=== PATIENT | female | born 1955 | race Caucasian/White ===

== ENCOUNTER 2017-04-02 17:13 | Inpatient (IN) | payer BC, OTHER ==
[2017-04-02] VITALS (10 sets, daily range): BP systolic 127–175; BP diastolic 68–84; PULSE 75–97; RESP 14–18; O2SAT 96–98
[~2017-04-02] VITALS: Ht 167.6 cm; Wt 128.0 kg
[~2017-04-02 17:13] MED LIST: LEXA20TA PO; LORA-475 PO; TELM1TAB56 PO
[2017-04-02] MEDS ORDERED: SODIUM CHLOR 0.9% 1000 ML INJ 1,000 ML IV ONE (17:23)
--- NOTE | 2017-04-02 17:30 | PD ---
HPI Chief Complaint: Stroke Alert Time Seen by Provider: 17:23 Travel History International Travel<30 days: No Contact w/Intl Traveler<30days: No Traveled to known affect area: No History of Present Illness HPI This 62-year-old female says she was driving when she started feeling very strange. She went home and her noted that one side of her face was not moving very well and she was having trouble speaking. She did not have any trouble walking or using her arms. She has a history of hypertension. She is not having headache. The symptoms started at 4:00 while she was driving. She was able to continue driving home. She has a history of hypertension. There is no history of stroke PFSH Past Medical History Cancer: No Diabetes: No Hepatitis: No Hiatal Hernia: No Thyroid Disease: No Past Surgical History Oral Surgery: Yes (TONSILLECTOMY, WISDOM TEETH EXTRACTIONS) Pacemaker: No Social History Tobacco Use: No Allergies-Medications (Allergen,Severity, Reaction): Coded Allergies: Sulfa (Verified Allergy, Severe, OVERALL BODY ACHES, 04/02/17) Reported Meds & Prescriptions Reported Meds & Active Scripts Active Reported Micardis (Telmisartan) 80 Mg Tab 80 Mg PO HS Ativan (Lorazepam) 2 Mg Tab 2 Mg PO BID PRN Review of Systems General / Constitutional: No: Fever, Chills Eyes: No: Diploplia, Blurred Vision HENT: No: Headaches, Vertigo, Lightheadedness Cardiovascular: No: Chest Pain or Discomfort, Palpitations Respiratory: No: Cough, Shortness of Breath Gastrointestinal: No: Vomiting, Diarrhea Genitourinary: No: Urgency Musculoskeletal: No: Myalgias Skin: No Rash Neurologic: Positive: Weakness, Focal Abnormalities, Slurred Speech, No: Syncope Psychiatric: No: Anxiety, Depression Hematologic/Lymphatic: No: Easy Bruising Physical Exam Narrative GENERAL: Well-developed female. She is dysarthric and her speech is slurred. Content of speech is normal SKIN: Focused skin assessment warm/dry. HEAD: Atraumatic. Normocephalic. EYES: Pupils equal and round. No scleral icterus. No injection or drainage. There is facial asymmetry. The left side of the face appears weak and she is unable to close her left eye tight. ENT: No nasal bleeding or discharge. Mucous membranes pink and moist. NECK: Trachea midline. No JVD. CARDIOVASCULAR: Regular rate and rhythm. No murmur appreciated. RESPIRATORY: No accessory muscle use. Clear to auscultation. Breath sounds equal bilaterally. GASTROINTESTINAL: Abdomen soft, non-tender, nondistended. Hepatic and splenic margins not palpable. MUSCULOSKELETAL: No obvious deformities. No clubbing. No cyanosis. No edema. NEUROLOGICAL: Awake and alert. No obvious cranial nerve deficits. There is left facial weakness. There is no sensory deficit. 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 There is no drift of the arms. Leg strength appears symmetric. There is facial asymmetry PSYCHIATRIC: Appropriate mood and affect; insight and judgment normal. Data Data Last Documented VS Vital Signs Date Time Temp Pulse Resp B/P Pulse Ox O2 Delivery O2 Flow Rate FiO2 04/02/17 20:38 85 16 143/71 97 Room Air 04/02/17 17:25 21 Orders Cath For Specimen (04/02/17 17:23) Neuro Checks Q2HX12,Q4H (04/02/17 17:23) Nursing Bedside Swallow Assess .ONCE (04/02/17 17:23) Activity Bed Rest (04/02/17 17:23) Diet Npo (04/02/17 Dinner) Prothrombin Time / Inr (Pt) (04/02/17 17:) Act Partial Throm Time (Ptt) (04/02/17 17:23) Complete Blood Count With Diff (04/02/17 17:) Basic Metabolic Panel (Bmp) (04/02/17 17:23) Fibrinogen (04/02/17 17:) Creatine Kinase (Cpk) (04/02/17 17:) Troponin I (04/02/17 17:23) Ua Includes Microscopic (04/02/17 17:23) Drug Screen, Random Urine (04/02/17 17:) Type And Screen (04/02/17 17:23) Ct Brain W/O Iv Contrast(Rout) (04/02/17 ) Electrocardiogram (04/02/17 ) Beta Hcg (Quant/Titer) (04/02/17 17:23) Consult Neurology (04/02/17 17:23) Sodium Chlor 0.9% 1000 Ml Inj (Ns 1000 M (04/02/17 17:23) Blood Glucose (04/02/17 17:23) Ecg Monitoring (04/02/17 17:23) Iv Access Insert/Monitor (04/02/17 17:23) NPO (04/02/17 17:23) Oximetry (04/02/17 17:23) Oxygen Administration (04/02/17 17:23) Resp Oxygen Corey C Titrat 1-4 L (04/02/17 17:23) Mri Brain W/O Contrast (04/02/17 17:39) (Hub Use Only)Inp Phy Cons/Ref (04/02/17 ) Aspirin (Aspirin) (04/02/17 18:15) Nih Stroke Scale - Nihss .On admission and discharge (04/02/17 18:08) Case Management Consult (04/02/17 ) Activity Bed Rest (04/02/17 18:08) Nursing Bedside Swallow Assess .ONCE (04/02/17 18:08) Scd Bilateral/Knee High MARGARETTE.QSHIFT (04/02/17 18:08) Hemoglobin (Hgb) A1c (04/02/17 18:08) Lipid Profile (04/03/17 06:00) Us Carotid Arteries Comp Bilat (04/02/17 ) Mra Brain W/O Contrast (Cow) (04/02/17 ) Echo 2d Comp With Doppler (04/02/17 ) Resp Oxygen Corey C Titrat 1-4 L (04/02/17 ) ^ Hold Medication (04/02/17 18:08) Sodium Chloride 0.9% Flush (Ns Flush) (04/02/17 21:00) Sodium Chloride 0.9% Flush (Ns Flush) (04/02/17 18:15) Sodium Chlor 0.9% 1000 Ml Inj (Ns 1000 M (04/02/17 18:08) Aspirin (Aspirin) (04/02/17 18:15) Bedside Glucose MARGARETTE.AC&HS (04/02/17 18:08) ^ Discontinue Insulin Orders (04/02/17 18:08) Insulin Aspart Supplemtl Scale (Novolog (04/02/17 21:00) Dextrose 50% In Leslye (Vial) Inj (D50w (Vi (04/02/17 18:15) Glucagon Inj (Glucagon Inj) (04/02/17 18:15) Consult Rehab Medicine (04/02/17 18:08) Assistant News Director / Telemetry MARGARETTE.Q8H (04/02/17 18:08) Consult Stoke Navigator (04/02/17 ) Aspirin Supp (Aspirin Supp) (04/02/17 18:15) (Hub Use Only)Inp Phy Cons/Ref (04/02/17 18:22) Labs Laboratory Tests Test 04/02/17 17:22 White Blood Count 11.9 TH/MM3 Red Blood Count 4.82 MIL/MM3 Hemoglobin 13.8 GM/DL Hematocrit 41.0 % Mean Corpuscular Volume 85.0 FL Mean Corpuscular Hemoglobin 28.6 PG Mean Corpuscular Hemoglobin 33.7 % Concent Red Cell Distribution Width 12.7 % Platelet Count 275 TH/MM3 Mean Platelet Volume 7.8 FL Neutrophils (%) (Auto) 72.7 % Lymphocytes (%) (Auto) 17.3 % Monocytes (%) (Auto) 6.4 % Eosinophils (%) (Auto) 1.6 % Basophils (%) (Auto) 2.0 % Neutrophils # (Auto) 8.6 TH/MM3 Lymphocytes # (Auto) 2.1 TH/MM3 Monocytes # (Auto) 0.8 TH/MM3 Eosinophils # (Auto) 0.2 TH/MM3 Basophils # (Auto) 0.2 TH/MM3 CBC Comment DIFF FINAL Differential Comment Prothrombin Time 10.5 SEC Prothromb Time International 1.0 RATIO Ratio Activated Partial 25.9 SEC Thromboplast Time Fibrinogen 330 mg/dL Sodium Level 141 MEQ/L Potassium Level 4.4 MEQ/L Chloride Level 106 MEQ/L Carbon Dioxide Level 26.7 MEQ/L Anion Gap 8 MEQ/L Blood Urea Nitrogen 12 MG/DL Creatinine 0.91 MG/DL Estimat Glomerular Filtration 63 ML/MIN Rate Random Glucose 106 MG/DL Calcium Level 8.9 MG/DL Total Creatine Kinase 95 U/L Troponin I LESS THAN 0.02 NG/ML Human Chorionic Gonadotropin, LESS THAN 1 Quant MIU/ML Blood Type O POSITIVE Antibody Screen NEGATIVE Blood Bank Comment [facility] Medical Decision Making Medical Screen Exam Complete: Yes Emergency Medical Condition: Yes Medical Record Reviewed: Yes Differential Diagnosis Differential includes CVA, Ash's palsy, TIA Narrative Course Patient was declared a stroke alert on arrival. She was taken for emergent CT scan. No acute stroke seen. There is a question of previous right posterior sylvian hypodensity which may represent previous infarct. MRI was recommended and has been ordered. Her NIH stroke score is 2 at this time and she is not thought to be a candidate for TPA as the deficit is not severe at this time. MRI was obtained and shows abnormal diffusion in the anterior sylvian region on the right side characteristic of an acute nonhemorrhagic infarction correlating to the anterior branches of the middle cerebral artery. On reevaluation at 9: 00 she still has slurring of speech but she feels that it's a bit better. The facial weakness is persistent. No arm or leg weakness is noted Diagnosis Primary Impression: Acute CVA (cerebrovascular accident) Admitting Information Admitting Physician Requests: Admit Horacio Gutierrez MD Apr 02, 2017 17:30
[2017-04-02] MEDS ORDERED: LORA-475 PO (17:32)
[2017-04-02] MEDS ORDERED: TELM1TAB56 PO (17:32)
[2017-04-02 17:36] LABS: AUTOMATED NEUTROPHIL # 8.6 TH/MM3 (1.8-7.7); BASOPHIL # 0.2 TH/MM3 (0-0.2); EOSINOPHIL # 0.2 TH/MM3 (0-0.4); EOSINOPHIL % 1.6 % (0.0-4.0); HEMO FLAGS DIFF FINAL; LYMPH % 17.3 % (9.0-44.0); LYMPHOCYTE # 2.1 TH/MM3 (1.0-4.8); MEAN CORPUSCULAR HEMOGLOBIN 28.6 PG (27.0-34.0); MEAN CORPUSCULAR HGB CONC 33.7 % (32.0-36.0); MONO % 6.4 % (0.0-8.0); NEUT % 72.7 % (16.0-70.0); PLATELET COUNT 275 TH/MM3 (150-450); RED BLOOD COUNT 4.82 MIL/MM3 (4.00-5.30); RED CELL DISTRIBUTION WIDTH 12.7 % (11.6-17.2); WHITE BLOOD COUNT 11.9 TH/MM3 (4.0-11.0)
--- NOTE | 2017-04-02 17:45 | RADHPO ---
EXAM DATE/TIME: 04/02/2017 17:18 [facility] COMPARISON: No previous studies available for comparison. INDICATIONS : Stroke alert. Slurred speech and confusion. RADIATION DOSE: 56.18 CTDIvol (mGy) This report was called to Dr. Redd at 1735 hours MEDICAL HISTORY : Non-responsive. SURGICAL HISTORY : Non-responsive. ENCOUNTER: Initial ACUITY: 1 day PAIN SCALE: 0/10 LOCATION: cranial TECHNIQUE: Multiple contiguous axial images were obtained of the head. Using automated exposure control and adj ustment of the mA and/or kV according to patient size, radiation dose was kept as low as reasonably a chievable to obtain optimal diagnostic quality images. FINDINGS: CEREBRUM: The ventricles are normal for age. There is a focal area of encephalomalacia in the posterior right parietal region, probably related to the posterior sylvian cortex. This measures up to 11 mm in widt h. No evidence of intraparenchymal hemorrhage or mass effect. No evidence of midline shift. There is questionable hyperdensity in one sulcus right mid parietal and left mid parietal only seen on a si ngle image (image #[id number]). POSTERIOR FOSSA: The cerebellum and brainstem are intact. There is geographic hyperdensity in the mid sepideh which is p robably due to beam hardening affect from the petrous tips. The 4th ventricle is midline. The cereb ellopontine angle is unremarkable. EXTRACRANIAL: The visualized portion of the orbits is intact. SKULL: The calvaria is intact. Hyperostosis of the calvarium.. CONCLUSION: 1. Right posterior sylvian hypodensity is nonspecific in appearance, but may represent encephalomal acia from old infarction. No evidence of mass effect. 2. Areas of linear hyperdensity on isolated images in the mid sylvian region and a focal area in th e sepideh is probably related to beam hardening artifact from osseous structures. Given the acute sympt oms, however, recommend further characterization with MRI of the brain. Ramesh Rowan MD on April 02, 2017 at 17:34 Board Certified Radiologist. This report was verified electronically.
[2017-04-02 17:49] LABS: APTT (PATIENT) 25.9 SEC (24.3-30.1); PROTHROMBIN TIME - PATIENT 10.5 SEC (9.8-11.6)
[2017-04-02 17:52] LABS: CHLORIDE 106 MEQ/L (98-107); POTASSIUM 4.4 MEQ/L (3.5-5.1); SODIUM (NA) 141 MEQ/L (136-145)
[2017-04-02 17:56] LABS: ANION GAP 8 MEQ/L (5-15); BICARBONATE 26.7 MEQ/L (21.0-32.0); BLOOD UREA NITROGEN 12 MG/DL (7-18)
[2017-04-02 17:59] LABS: GLOMERULAR FILTRATION RATE 63 ML/MIN (>89)
[2017-04-02 18:04] LABS: BETA HCG QUANT LESS THAN 1 MIU/ML (0-5)
[2017-04-02 18:05] LABS: CREATINE KINASE 95 U/L (26-192)
[2017-04-02] MEDS: SODIUM CHLOR 0.9% 1000 ML INJ 1,000 ML IV SCH (18:08)
[2017-04-02] MEDS ORDERED: DEXTROSE 50% IN WATER 50 ML VIAL(D50) IV PUSH PRN (18:15)
[2017-04-02] MEDS ORDERED: ASPIRIN 325 MG TAB PO ONE (18:15)
[2017-04-02] MEDS: ASPIRIN 325 MG TAB PO SCH (18:15)
[2017-04-02] MEDS ORDERED: ASPIRIN 300 MG SUPP RECTAL ONE (18:15)
[2017-04-02] MEDS ORDERED: SODIUM CHLORIDE 0.9% FLUSH 5 ML FLUSH IV FLUSH PRN (18:15)
[2017-04-02] MEDS ORDERED: GLUCAGON 1 MG/ML VIAL OTHER PRN (18:15)
--- NOTE | 2017-04-02 20:53 | RADHPO ---
EXAM DATE/TIME: 04/02/2017 19:59 [facility] COMPARISON: MRA BRAIN W/O CONTRAST, April 02, 2017, 19:59. CT BRAIN W/O CONTRAST, April 02, 2017, 17:18. INDICATIONS : CVA. Slurred speech, left facial droop. MEDICAL HISTORY : Sleep apnea. Hypertension. SURGICAL HISTORY : Tonsillectomy. ENCOUNTER: Initial ACUITY: 1 day PAIN SCORE: 0/10 LOCATION: cranial TECHNIQUE: Multiplanar, multisequence MRI of the brain was performed without contrast. FINDINGS: The examination was performed to characterize findings in the right parietal lobe on CT scan includin g a focal posterior sylvian area of hypodensity and linear hyper density in in the mid sylvian region . In the posterior right sylvian region extending to the motor cortex, there is signal abnormality dandy acterized by T2 prolongation and subcortical susceptibility artifact with out restricted diffusion, c haracteristic of an old infarction with some chronic blood products. This old infarction would expla in the focal area of encephalomalacia seen on the CT scan. In the anterior sylvian region, there is some ill-defined mild T2 prolongation with associated restri cted diffusion which encompasses an area that measures approximately 2.4 cm. The restricted diffusio n is confirmed on ADC map parametric images. No signal abnormality is seen in the left supratentorial brain. The ventricles are normal in size. No evidence of midline shift. Posterior fossa structures are grossly intact. The CP angle and pituitary are normal in configuratio n. CONCLUSION: 1. Abnormal MRI demonstrating restricted diffusion in the anterior sylvian region on the right side c haracteristic of an acute nonhemorrhagic infarction correlating to the anterior branches of the MCA. 2. In the posterior right sylvian region, there is evidence of an old infarction. Ramesh Rowan MD on April 02, 2017 at 20:43 Board Certified Radiologist. This report was verified electronically.
[2017-04-02] MEDS: SODIUM CHLORIDE 0.9% FLUSH 5 ML FLUSH IV FLUSH SCH (21:00)
[2017-04-02] MEDS: INSULIN ASPART SUPPLEMENTAL SCALE SQ SCH (21:00)
--- NOTE | 2017-04-02 21:51 | RADHPO ---
EXAM DATE/TIME: 04/02/2017 19:59 [facility] COMPARISON: MRI BRAIN W/O CONTRAST, April 02, 2017, 19:59. INDICATIONS : CVA. Slurred speech, left facial droop. MEDICAL HISTORY : Hypertension. Sleep apnea. SURGICAL HISTORY : Tonsillectomy. ENCOUNTER: Initial ACUITY: 1 day PAIN SCORE: 0/10 LOCATION: cranial Please note a normal MRA of the brain does not entirely exclude the possibility of a small aneurysm, nor the possibility of distal intracranial vessel disease. TECHNIQUE: 3D time of flight MRA was performed. Source images, multiplanar STS MIP, and 3D volume MIP reconstru ctions were reviewed. FINDINGS: There is visualization of the major intracranial arteries out to the second-order branch vessels. Th ere is no evidence for aneurysm, vessel truncation or stenosis, and no evidence for vascular malforma tion. There is asymmetric appearance to the middle cerebral artery bilaterally. Flow is seen in the right PCOM. No flow seen in the left PCOM or anterior communicating artery. CONCLUSION: No evidence of vessel truncation or aneurysm. Ramesh Rowan MD on April 02, 2017 at 21:48 Board Certified Radiologist. This report was verified electronically.
[2017-04-02 23:25] LABS: BLOOD, URINE TRACE (NEG); GLUCOSE,URINE NEG (NEG); KETONE, URINE NEG (NEG); NITRITE,URINE NEG (NEG); PH, URINE 5.5 (5.0-8.5)
[2017-04-02 23:32] LABS: URINE COLOR YELLOW (YELLW/STRAW)
[2017-04-02 23:33] LABS: MUCUS URINE MOD /lpf (OCC)
[2017-04-02 23:35] LABS: AMPHETAMINE, URINE NEG (NEG); BARBITURATES, URINE NEG (NEG); COCAINE, URINE NEG (NEG)
[2017-04-02 23:36] LABS: RBC, URINE 0-3 /hpf (0-3); WBC, URINE 0-2 /hpf (0-5)
[2017-04-02 23:39] LABS: CALCIUM OXALATE CRYSTALS,URINE OCC /hpf
[2017-04-03] VITALS (7 sets, daily range): BP systolic 142–155; BP diastolic 86–91; PULSE 73–83; RESP 18–20; TEMP 96.3–98.7; O2SAT 94–98
[2017-04-03] MEDS: INSULIN ASPART SUPPLEMENTAL SCALE SQ SCH ×4 (07:00→20:32)
--- NOTE | 2017-04-03 08:25 | HHI.PR ---
Review/Management Diagnosis Small acute right MCA stroke--symptoms improved this am compared with last PM Plan continue aspirin 325 mg daily ok to elevate HOB follow up echo, carotid US, lipid panel. Monitor cardiac telemetry to r/ afib. 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 Diagnosis/Plan: Subjective Subjective Comments Patient reports improvement in speech today. Denies any focal weakness or numbness in arms or legs. Active Medications Current Medications Medications (Trade) Dose Ordered Sig/Carlos Route Start Time Stop Time Status Last Admin (NS Flush) 2 ml BID IV FLUSH 04/02/17 21:00 04/02/17 21:00 IV Flush 2 ml 2 ml UNSCH PRN IV FLUSH 04/02/17 18:15 (NS 1000 ml Inj) 1,000 ml @ 70 mls/hr [id number] IV 04/02/17 18:08 (Aspirin) 325 mg DAILY PO 04/02/17 18:15 (NovoLOG SUPPLEMENTAL SCALE) 1 ACHS SQ 04/02/17 21:00 (D50w (Vial) Inj) 50 ml UNSCH PRN IV PUSH 04/02/17 18:15 (Glucagon Inj) 1 mg UNSCH PRN OTHER 04/02/17 18:15 Allergies Allergies Coded Allergies Sulfa (Verified Allergy, Severe, OVERALL BODY ACHES, 04/02/17) Exam I&O / VS 04/02/17 04/02/17 04/03/17 15:00 23:00 07:00 Intake Total 231 ml Output Total 550 ml Balance 231 ml -550 ml Intake IV Total 231 ml Output Urine Total 550 ml # Bowel Movements 1 Vital Signs Date Time Temp Pulse Resp B/P Pulse Ox O2 Delivery O2 Flow Rate FiO2 04/03/17 08:00 96.9 73 20 150/87 95 04/03/17 04:15 98.7 80 18 149/89 94 04/03/17 00:00 97.8 83 18 142/86 98 04/02/17 22:00 96 21 04/02/17 21:52 78 16 127/68 97 Room Air 04/02/17 20:38 85 16 143/71 97 Room Air 04/02/17 19:30 78 97 Room Air 04/02/17 19:15 84 14 175/77 97 Room Air 04/02/17 18:45 83 18 166/84 97 Room Air 04/02/17 17:27 98 Room Air 04/02/17 17:27 98 Room Air 04/02/17 17:25 98 21 04/02/17 17:23 97 18 129/80 98 Room Air Exam Comments alert, speech mildly dysarthric but improved from last night CN--minimal left upper motor neuron CN 7 palsey. PERRL, extraoccular motility normal Motor 5/5 BUE and BLE. Normal fine motor in both hands today. No pronator drift. Objective Radiology Results MRI brain--small area of diffusion abnormality right MCA territory. 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 No hemorrhage MRA brain--normal Micro and Labs Laboratory Tests Test 04/02/17 04/02/17 17:22 23:00 White Blood Count 11.9 Red Blood Count 4.82 Hemoglobin 13.8 Hematocrit 41.0 Mean Corpuscular Volume 85.0 Mean Corpuscular Hemoglobin 28.6 Mean Corpuscular Hemoglobin 33.7 Concent Red Cell Distribution Width 12.7 Platelet Count 275 Mean Platelet Volume 7.8 Neutrophils (%) (Auto) 72.7 Lymphocytes (%) (Auto) 17.3 Monocytes (%) (Auto) 6.4 Eosinophils (%) (Auto) 1.6 Basophils (%) (Auto) 2.0 Neutrophils # (Auto) 8.6 Lymphocytes # (Auto) 2.1 Monocytes # (Auto) 0.8 Eosinophils # (Auto) 0.2 Basophils # (Auto) 0.2 CBC Comment DIFF FINAL Differential Comment Prothrombin Time 10.5 Prothromb Time International 1.0 Ratio Activated Partial 25.9 Thromboplast Time Fibrinogen 330 Sodium Level 141 Potassium Level 4.4 Chloride Level 106 Carbon Dioxide Level 26.7 Anion Gap 8 Blood Urea Nitrogen 12 Creatinine 0.91 Estimat Glomerular Filtration 63 Rate Random Glucose 106 Calcium Level 8.9 Total Creatine Kinase 95 Troponin I LESS THAN 0.02 Human Chorionic Gonadotropin, LESS THAN 1 Quant Blood Type O POSITIVE Antibody Screen NEGATIVE Blood Bank Comment Urine Collection Type Urine Color YELLOW Urine Turbidity SLIGHT Urine pH 5.5 Urine Specific [place] 1.019 Urine Protein NEG Urine Glucose (UA) NEG Urine Ketones NEG Urine Occult Blood TRACE Urine Nitrite NEG Urine Bilirubin NEG Urine Leukocyte Esterase NEG Urine RBC 0-3 Urine WBC 0-2 Urine Squamous Epithelial 6-8 Cells Urine Calcium Oxalate Crystals OCC Urine Hyaline Casts 3-5 Urine Mucus MOD Urine Opiates Screen NEG Urine Barbiturates Screen NEG Urine Amphetamines Screen NEG Urine Benzodiazepines Screen NEG Urine Cocaine Screen NEG Urine Cannabinoids Screen NEG Diagnostic Tests ECHO--pending Carotid US--pending Tom Padgett PhD Apr 03, 2017 08:25
--- NOTE | 2017-04-03 08:51 | HHI.HP ---
cc: Ranjeet Lind MD [facility] Service [facility] Primary Care Physician Ranjeet Lind MD Admission Diagnosis ACUTE CVA Diagnoses: (1) Acute CVA (cerebrovascular accident) (2) Anxiety (3) Hypertension Chief Complaint: Slurred speech Travel History International Travel<30 Days: No Contact w/Intl Traveler <30 Da: No Traveled to Known Affected Are: No History of Present Illness The patient is a 62-year-old female who presented to the emergency department with complaint of slurring of speech that started at about 4 PM yesterday. She states that she was driving home and began to feel "off". She noticed that her speech was slurring. Her advised her to come to the hospital. She states that she is very anxious. She has history of hypertension and reports good control of her blood pressure. No headache or blurred vision. No chest pain or dyspnea. Review of Systems Constitutional: DENIES: Fever, Chills, Night Sweats Eyes: DENIES: Blurred vision, Vision loss Ears, nose, mouth, throat: DENIES: Hearing loss Respiratory: DENIES: Cough, Wheezing, Sputum production, Shortness of breath Cardiovascular: DENIES: Chest pain, Palpitations, Dyspnea on Exertion, Lower Extremity Edema Gastrointestinal: DENIES: Abdominal pain, Constipation, Diarrhea, Nausea, Vomiting Genitourinary: DENIES: Urinary frequency, Urinary incontinence, Urgency, Hematuria, Dysuria, Nocturia Musculoskeletal: DENIES: Joint pain, Muscle aches Integumentary: DENIES: Pruritus, Rash Hematologic/lymphatic: DENIES: Bruising Neurologic: COMPLAINS OF: Speech Problems, DENIES: Headache, Localized weakness, Paresthesias Past Family Social History Past Medical History Hypertension Anxiety Past Surgical History Tonsils and adenoids at age 8 Right carpal tunnel release Reported Medications Micardis 80 mg daily at bedtime Ativan 2 mg 2-3 times daily as needed Lexapro 20 mg daily Allergies: Coded Allergies: Sulfa (Verified Allergy, Severe, OVERALL BODY ACHES, 04/02/17) Family History Father had myocardial infarction at age 57. Brother has heart disease. Social History Denies alcohol, tobacco, or illicit drug use. Physical Exam Vital Signs Vital Signs Date Time Temp Pulse Resp B/P Pulse Ox O2 Delivery O2 Flow Rate FiO2 04/03/17 08:00 96.9 73 20 150/87 95 04/03/17 04:15 98.7 80 18 149/89 94 04/03/17 00:00 97.8 83 18 142/86 98 04/02/17 23:00 75 04/02/17 22:00 96 21 04/02/17 21:52 78 16 127/68 97 Room Air 04/02/17 20:38 85 16 143/71 97 Room Air 04/02/17 19:30 78 97 Room Air 04/02/17 19:15 84 14 175/77 97 Room Air 04/02/17 18:45 83 18 166/84 97 Room Air 04/02/17 17:27 98 Room Air 04/02/17 17:27 98 Room Air 04/02/17 17:25 98 21 04/02/17 17:23 97 18 129/80 98 Room Air Physical Exam GENERAL: Obese female in no acute distress. HEENT: Normocephalic, atraumatic. Pupils equal, round and reactive. Extraocular movements intact. No scleral icterus. No injection or drainage. Oropharynx is clear. Mucous membranes are moist. Poor dentition CARDIOVASCULAR: Regular rate and rhythm without murmurs, gallops, or rubs. RESPIRATORY: Clear to auscultation. No wheezes, rales, or rhonchi. Breathing is non-labored. GASTROINTESTINAL: Abdomen soft, non-tender, nondistended. EXTREMITIES: No lower extremity edema. No calf tenderness. PSYCH: Alert and oriented x 3. NEURO: Speech is somewhat slurred. Mild left facial droop. Strength is 5/5 in all 4 extremities. Laboratory Laboratory Tests Test 04/02/17 04/02/17 17:22 23:00 White Blood Count 11.9 Red Blood Count 4.82 Hemoglobin 13.8 Hematocrit 41.0 Mean Corpuscular Volume 85.0 Mean Corpuscular Hemoglobin 28.6 Mean Corpuscular Hemoglobin 33.7 Concent Red Cell Distribution Width 12.7 Platelet Count 275 Mean Platelet Volume 7.8 Neutrophils (%) (Auto) 72.7 Lymphocytes (%) (Auto) 17.3 Monocytes (%) (Auto) 6.4 Eosinophils (%) (Auto) 1.6 Basophils (%) (Auto) 2.0 Neutrophils # (Auto) 8.6 Lymphocytes # (Auto) 2.1 Monocytes # (Auto) 0.8 Eosinophils # (Auto) 0.2 Basophils # (Auto) 0.2 CBC Comment DIFF FINAL Differential Comment Prothrombin Time 10.5 Prothromb Time International 1.0 Ratio Activated Partial 25.9 Thromboplast Time Fibrinogen 330 Sodium Level 141 Potassium Level 4.4 Chloride Level 106 Carbon Dioxide Level 26.7 Anion Gap 8 Blood Urea Nitrogen 12 Creatinine 0.91 Estimat Glomerular Filtration 63 Rate Random Glucose 106 Calcium Level 8.9 Total Creatine Kinase 95 Troponin I LESS THAN 0.02 Human Chorionic Gonadotropin, LESS THAN 1 Quant Blood Type O POSITIVE Antibody Screen NEGATIVE Blood Bank Comment Urine Collection Type Urine Color YELLOW Urine Turbidity SLIGHT Urine pH 5.5 Urine Specific [place] 1.019 Urine Protein NEG Urine Glucose (UA) NEG Urine Ketones NEG Urine Occult Blood TRACE Urine Nitrite NEG Urine Bilirubin NEG Urine Leukocyte Esterase NEG Urine RBC 0-3 Urine WBC 0-2 Urine Squamous Epithelial 6-8 Cells Urine Calcium Oxalate Crystals OCC Urine Hyaline Casts 3-5 Urine Mucus MOD Urine Opiates Screen NEG Urine Barbiturates Screen NEG Urine Amphetamines Screen NEG Urine Benzodiazepines Screen NEG Urine Cocaine Screen NEG Urine Cannabinoids Screen NEG Result Diagram: 04/02/17 1722 04/02/17 1722 Imaging Last Impressions Brain MRI 04/02/17 1739 Signed Impressions: Service Date/Time: Sunday, April 02, 2017 19:59 - CONCLUSION: 1. Abnormal MRI demonstrating restricted diffusion in the anterior sylvian region on the right side characteristic of an acute nonhemorrhagic infarction correlating to the anterior branches of the MCA. 2. In the posterior right sylvian region, there is evidence of an old infarction. Ramesh Rowan MD Head Magnetic Resonance Angiography 04/02/17 0000 Signed Impressions: Service Date/Time: Sunday, April 02, 2017 19:59 - CONCLUSION: No evidence of vessel truncation or aneurysm. Ramesh Rowan MD Head CT 04/02/17 0000 Signed Impressions: Service Date/Time: Sunday, April 02, 2017 17:18 - CONCLUSION: 1. Right posterior sylvian hypodensity is nonspecific in appearance, but may represent encephalomalacia from old infarction. No evidence of mass effect. 2. Areas of linear hyperdensity on isolated images in the mid sylvian region and a focal area in the sepideh is probably related to beam hardening artifact from osseous structures. Given the acute symptoms, however, recommend further characterization with MRI of the brain. Ramesh Rowan MD Assessment and Plan Assessment and Plan 1. Acute CVA: Appreciate neurology recommendations. Discussed with Dr. Padgett. Continue PT/OT/ST. Symptoms are improving. Continue aspirin daily. Echocardiogram, carotid artery ultrasound, and lipid panel are pending. Monitor on telemetry to rule out atrial fibrillation. 2. Anxiety: Continue Lexapro, Ativan as needed. 3. Hypertension: Allow permissive hypertension. Patient takes Micardis 80 mg daily. 4. DVT prophylaxis: SCDs. Possible discharge home tomorrow pending further clinical improvement, imaging/ labs studies. Sunil Hernandez MD Apr 03, 2017 08:51
--- NOTE | 2017-04-03 08:58 | MB ---
cc: HECTOR BLANCHARD M.D. DATE OF CONSULTATION: 04/02/2017. REASON FOR CONSULTATION: Stroke alert. HISTORY OF PRESENT ILLNESS: This is a very pleasant patient who about 4 o'clock today had sudden onset of slurred speech and mild left facial weakness. She denied any weakness of the arms, numbness or tingling or headache. PAST MEDICAL HISTORY: No history of stroke in the past. She has a history of hypertension. MEDICATIONS AT HOME: 1. Micardis. 2. Lexapro. 3. Ativan. ALLERGIES: SULFA. NEUROLOGIC EXAMINATION: VITAL SIGNS: Blood pressure is 129/80, pulse is 97, respirations 18. HIGHER CORTICAL FUNCTIONS: She is alert. Speech is dysarthric but not aphasic. CRANIAL NERVES: The there is a trace left upper motor neuron cranial nerve VII palsy. The pupils are equal and extraocular movements are intact. MOTOR: On motor exam, she has normal strength and tone of all groups in both upper and lower extremities. There is no pronator drift. There is perhaps very minimal diminished fine motor skills left hand. [id number] is normal. IMAGING STUDIES: CT of the brain shows an old infarct in the right parietal area. There is an area of increased signal in a linear fashion in the mid Sylvian region and sepideh, probably beam hardening artifact. MRI is recommended for further evaluation. LABORATORY DATA" White count 11,900, hemoglobin 13.8, hematocrit 41%, platelet count 275,000. PT 10.5. INR 1. APTT 25.9. Sodium is 141, potassium 4.4, chloride 106, carbon dioxide 26.7, the BUN is 12, creatinine 0.91, GFR is 63. Telemetry shows sinus rhythm. IMPRESSION: Probable lacunar stroke in the right hemisphere which is very mild. NIH stroke scale is 2. Would recommend further evaluation with an MRI of the brain. I think that the area of linear hyperdensity is probably beam hardening artifact. At this point however because of the very minimal symptoms, I would not recommend IV tPA. I discussed this with the patient and her and they agree. Would recommend starting aspirin 325 milligrams daily and evaluate further with an MRI of the brain, MRA of the brain, carotid ultrasound, echocardiogram and lipid panel. For now, would maintain the patient head of bed flat for 12 hours. MD CALEB Alvarado/ARIS /6:11 PM /8:55 AM
[2017-04-03] MEDS: SODIUM CHLORIDE 0.9% FLUSH 5 ML FLUSH IV FLUSH SCH ×2 (09:00→20:33)
[2017-04-03 09:30] LABS: HDL CHOLESTEROL 30.8 MG/DL (40.0-60.0)
--- NOTE | 2017-04-03 09:32 | RADHPO ---
EXAM DATE/TIME: 04/03/2017 07:57 [place] COMPARISON: No previous studies available for comparison. INDICATIONS : Cerebrovascular accident. MEDICAL HISTORY : Hypertension. Renal calculi. Sleep apnea. Anxiety. SURGICAL HISTORY : Tonsillectomy. Right carpal tunnel surgery. ENCOUNTER: Initial ACUITY: 2 days PAIN SCORE: 0/10 LOCATION: Bilateral neck PEAK SYSTOLIC VELOCITIES (cm/sec): ICA/CCA RATIO: Right: 1.7 Left: 1.5 ICA: Right: 118 Left: 115 CCA: Right: 69 Left: 75 ECA: Right: 91 Left: 107 VERTEBRAL: Right: 46 antegrade Left: 39 antegrade Elevated flow velocities and ICA/CCA ratios have been found to correlate with increased degrees of vessel stenosis, calculated as percentage of diameter relative to a normal segment of distal ICA/CCA FINDINGS: RIGHT CAROTID: No significant stenosis is visualized. The waveforms are within normal limits. LEFT CAROTID: No significant stenosis is visualized. The waveforms are within normal limits. VERTEBRAL ARTERIES: Antegrade flow is seen in both vertebral arteries. MISCELLANEOUS: None. CONCLUSION: 1. No hemodynamically significant carotid artery stenosis identified. Fernando Elizabeth MD on April 03, 2017 at 9:30 Board Certified Radiologist. This report was verified electronically.
--- NOTE | 2017-04-03 11:14 | EKG ---
Date Performed: 04/02/2017 Time Performed: 17:44:30 PTAGE: 62 years EKG: Sinus rhythm Possible inferior infarct - age undetermined Low QRS voltages in precordial leads Abnormal ECG NO PREVIOUS TRACING DOCTOR: Adonis Salazar Interpretating Date/Time 04/03/2017 11:13:09
--- NOTE | 2017-04-03 11:17 | ECHRPT ---
Indication: CVA/TIA CONCLUSIONS Normal left ventricular size. Wall thickness is normal. The left ventricular systolic function is low normal with an estimated ejection fraction in the rang e of 50- 55%. Mild thickening of the mitral valve leaflets. Mitral annular calcification is present. No mitral valve stenosis. Mild mitral annular calcification. Structurally normal tricuspid valve. There is trace tricuspid valve regurgitation. The estimated pulmonary arterial pressure is 33 mmHg. Normal estimated pulmonary pressures. BP: 143 / 71 HR: 85 Rhythm: Sinus MEASUREMENTS (Male / Female) Normal Values Technical Quality:Fair 2D ECHO LV Diastolic Diameter PLAX 4.5 cm 4.2 - 5.9 / 3.9 - 5.3 cm LV Systolic Diameter PLAX 3.5 cm IVS Diastolic Thickness 0.7 cm 0.6 - 1.0 / 0.6 - 0.9 cm LVPW Diastolic Thickness 0.7 cm 0.6 - 1.0 / 0.6 - 0.9 cm LV Relative Wall Thickness 0.3 RV Internal Dim ED PLAX 2.3 cm LA Systolic Diameter LX 3.7 cm 3.0 - 4.0 / 2.7 - 3.8 cm M-MODE Aortic Root Diameter MM 3.5 cm AV Cusp Separation MM 2.1 cm DOPPLER AV Peak Velocity 171.0 cm/s AV Peak Gradient 11.7 mmHg LVOT Peak Velocity 82.9 cm/s LVOT Peak Gradient 2.7 mmHg Mitral E Point Velocity 59.7 cm/s Mitral A Point Velocity 79.0 cm/s Mitral E to A Ratio 0.8 LV E' Lateral Velocity 6.5 cm/s Mitral E to LV E' Lateral Ratio 9.1 LV E' Septal Velocity 8.9 cm/s Mitral E to LV E' Septal Ratio 6.7 TR Peak Velocity 276.0 cm/s TR Peak Gradient 30.5 mmHg FINDINGS LEFT VENTRICLE Normal left ventricular size. Wall thickness is normal. The left ventricular systolic function is low normal with an estimated ejection fraction in the rang e of 50- 55%. RIGHT VENTRICLE Normal right ventricular size and systolic function. LEFT ATRIUM The left atrial size is normal. RIGHT ATRIUM The right atrial size is normal. ATRIAL SEPTUM Normal atrial septal thickness without atrial level shunting by limited color doppler interrogation. AORTA The aortic root and proximal ascending aorta are normal in size on limited imaging. MITRAL VALVE Mild thickening of the mitral valve leaflets. Mitral annular calcification is present. No mitral valve stenosis. Mild mitral annular calcification. AORTIC VALVE Trileaflet aortic valve. No aortic valve stenosis or regurgitation. TRICUSPID VALVE Structurally normal tricuspid valve. There is trace tricuspid valve regurgitation. The estimated pulmonary arterial pressure is 33 mmHg. Normal estimated pulmonary pressures. PULMONARY VALVE The pulmonary valve is not well visualized. VESSELS The inferior vena cava is normal in size. PERICARDIUM No pericardial effusion. Andrea Arenas MD, FACC (Electronically Signed) Final Date:03 April 2017 11:17
[2017-04-03] MEDS: LORazepam 2 MG TAB PO PRN ×2 (11:34→18:06)
[2017-04-03] MEDS: ASPIRIN 325 MG TAB PO SCH (11:34)
[2017-04-03] MEDS: SODIUM CHLOR 0.9% 1000 ML INJ 1,000 ML IV SCH ×2 (11:35→22:44)
[2017-04-03 16:43] LABS: HEMOGLOBIN A1a 1.2 %; HEMOGLOBIN Ao 83.7 %; HEMOGLOBIN LA1C 1.8 %; HEMOGLOBIN P3 3.2 %
[2017-04-03 17:00] LABS: HEMOGLOBIN A1a 1.1 %; HEMOGLOBIN Ao 83.3 %; HEMOGLOBIN LA1C 2.3 %; HEMOGLOBIN P3 3.3 %
[2017-04-03] MEDS ORDERED: ATORVASTATIN 20 MG TAB PO SCH (21:00)
[2017-04-04 04:00] VITALS: BP 143/76; PULSE 75; RESP 20; TEMP 98.6; O2SAT 96
[2017-04-04 06:27] LABS: CHLORIDE 107 MEQ/L (98-107); POTASSIUM 3.7 MEQ/L (3.5-5.1); SODIUM (NA) 142 MEQ/L (136-145)
[2017-04-04 06:32] LABS: ANION GAP 8 MEQ/L (5-15); BICARBONATE 26.9 MEQ/L (21.0-32.0); BLOOD UREA NITROGEN 9 MG/DL (7-18)
[2017-04-04 06:35] LABS: ALT (GPT) 23 U/L (10-53); AST (GOT) 16 U/L (15-37); GLOMERULAR FILTRATION RATE 93 ML/MIN (>89)
[2017-04-04 06:38] LABS: ALKALINE PHOSPHATASE 114 U/L (45-117); TOTAL BILIRUBIN ADULT 0.9 MG/DL (0.2-1.0)
[2017-04-04] MEDS: INSULIN ASPART SUPPLEMENTAL SCALE SQ SCH (07:00)
[2017-04-04 08:00] VITALS: O2SAT 94
[2017-04-04 08:16] VITALS: BP 149/88; PULSE 79; RESP 19; TEMP 97.9; O2SAT 95
[2017-04-04] MEDS: SODIUM CHLORIDE 0.9% FLUSH 5 ML FLUSH IV FLUSH SCH (09:00)
[2017-04-04] MEDS: LORazepam 2 MG TAB PO PRN (09:30)
[2017-04-04] MEDS: ASPIRIN 325 MG TAB PO SCH (09:30)
--- NOTE | 2017-04-04 10:48 | HHI.DCPOC ---
Discharge Care Plan Diagnosis: (1) Anxiety (2) Hypertension (3) Acute CVA (cerebrovascular accident) Goals to Promote Your Health * To prevent worsening of your condition and complications * To maintain your health at the optimal level Directions to Meet Your Goals Take your medications as prescribed Follow your dietary instruction Follow activity as directed Keep your appointments as scheduled Take your immunizations and boosters as scheduled If your symptoms worsen call your PCP, if no PCP go to Urgent Care Center or Emergency Room Smoking is Dangerous to Your Health. Avoid second hand smoke Call the 24-hour hour crisis hotline for domestic abuse at Sunil Hernandez MD Apr 04, 2017 10:48
[2017-04-04] MEDS ORDERED: ASPI325T PO (11:03)
[2017-04-04] MEDS ORDERED: ATOR20TA15 PO (11:03)
--- NOTE | 2017-04-04 11:06 | HHI.PR ---
Subjective Remarks Follow up CVA. Patient states that she feels much better today. She would like to go home. Slurred speech has continued to improve. Denies numbness, tingling, weakness of her extremities. No headache or vision changes. Objective Vitals Vital Signs Date Time Temp Pulse Resp B/P Pulse Ox O2 Delivery O2 Flow Rate FiO2 04/04/17 08:16 97.9 79 19 149/88 95 04/04/17 04:00 98.6 75 20 143/76 96 04/03/17 20:00 97.7 73 20 155/91 96 04/03/17 19:53 96 21 04/03/17 16:00 97.1 81 19 143/89 96 04/03/17 12:00 96.3 80 20 149/91 95 I/O 04/03/17 04/03/17 04/03/17 04/04/17 04/04/17 04/04/17 07:00 15:00 23:00 07:00 15:00 23:00 Intake Total 360 ml 240 ml Output Total 550 ml 300 ml Balance -550 ml 60 ml 240 ml Intake Oral 360 ml 240 ml Output Urine Total 550 ml 300 ml # Voids 3 # Bowel Movements 1 0 Result Diagram: 04/02/17 1722 04/04/17 0505 Imaging Last Impressions Carotid Artery Ultrasound 04/03/17 0000 Signed Impressions: Service Date/Time: Monday, April 03, 2017 07:57 - CONCLUSION: 1. No hemodynamically significant carotid artery stenosis identified. Fernando Elizabeth MD Brain MRI 04/02/17 1739 Signed Impressions: Service Date/Time: Sunday, April 02, 2017 19:59 - CONCLUSION: 1. Abnormal MRI demonstrating restricted diffusion in the anterior sylvian region on the right side characteristic of an acute nonhemorrhagic infarction correlating to the anterior branches of the MCA. 2. In the posterior right sylvian region, there is evidence of an old infarction. Ramesh Rowan MD Head Magnetic Resonance Angiography 04/02/17 0000 Signed Impressions: Service Date/Time: Sunday, April 02, 2017 19:59 - CONCLUSION: No evidence of vessel truncation or aneurysm. Ramesh Rowan MD Head CT 04/02/17 0000 Signed Impressions: Service Date/Time: Sunday, April 02, 2017 17:18 - CONCLUSION: 1. Right posterior sylvian hypodensity is nonspecific in appearance, but may represent encephalomalacia from old infarction. No evidence of mass effect. 2. Areas of linear hyperdensity on isolated images in the mid sylvian region and a focal area in the sepideh is probably related to beam hardening artifact from osseous structures. Given the acute symptoms, however, recommend further characterization with MRI of the brain. Ramesh Rowan MD Objective Remarks General: Obese female in no acute distress. Sitting up in a chair. Heart: Regular rate and rhythm. No murmur. Lungs: Clear to auscultation bilaterally. No wheezes, rales, or rhonchi. Breathing is nonlabored. Abdomen: Soft, nontender, nondistended. Extremities: No lower extremity edema. Psych: Alert and oriented. Neuro: Mild left facial droop noted. Speech is slightly slurred, less than yesterday. Machine Boss strength 5/5 bilaterally. Procedures None Urinary Catheter: No Vascular Central Line Catheter: No A/P Problem List: (1) Acute CVA (cerebrovascular accident) ICD Code: I63.9 Status: Acute (2) Anxiety ICD Code: F41.9 Status: Chronic (3) Hypertension ICD Code: I10 Status: Chronic Assessment and Plan 1. Acute CVA: Appreciate neurology recommendations. Discussed with Dr. Padgett. Continue PT/OT/ST. Symptoms are improving. Continue aspirin daily. Echocardiogram and carotid artery ultrasound are unremarkable. Continue statin for dyslipidemia. 2. Anxiety: Continue Lexapro, Ativan as needed. 3. Hypertension: Resume Micardis. 4. DVT prophylaxis: SCDs. Discharge Planning Discharge home in stable condition. Heart healthy diet. Activity as tolerated. Follow-up with neurology, PCP. Follow-up with cardiology for event monitor versus loop recorder. Sunil Hernandez MD Apr 04, 2017 11:06
== END 2017-04-04 13:00 | disposition home or self-care (01) | DRG 65 ==
LOC: PHED 17:13 → PHEDA 21:14 → PH3A 22:36
PROVIDERS: ADMIT Family Medicine; ATTEND Family Medicine
DX: I63.521 Cerebral infarction due to unspecified occlusion or stenosis of right anterior cerebral artery (principal); Z68.42 Body mass index [BMI] 45.0-49.9, adult; I10 Essential (primary) hypertension; F41.9 Anxiety disorder, unspecified; R47.81 Slurred speech; R47.1 Dysarthria and anarthria; R29.702 NIHSS score 2; E66.9 Obesity, unspecified; Z86.73 Personal history of transient ischemic attack (TIA), and cerebral infarction without residual deficits; E78.5 Hyperlipidemia, unspecified; R29.810 Facial weakness
CPT/HCPCS: 70450; 70544; 70551; 80048; 80053; 80061; 80307; 81001; 82550; 82948; 83036; 84484; 84702; 85025; 85384; 85610; 85730; 86850; 86900; 86901; 93005; 93306; 93880; 96360; J7030

== ENCOUNTER 2017-08-01 11:31 | Day surgery (SDC) | payer BC ==
[~2017-08-01 11:31] MED LIST changes: +ASPI325T PO; +ATOR20TA15 PO; -LEXA20TA PO
[2017-08-01] MEDS ORDERED: CHLORHEXIDINE GLUCONATE 2 % 1 PACK (2 CLOTHS) TOPICAL SCH (12:30)
[2017-08-01] MEDS ORDERED: MUPIROCIN 2% OINT 1 APPLIC/GM SYR NASAL SCH (12:30)
[2017-08-01] MEDS ORDERED: POVIDONE IODINE 5% (ANTISEPSIS KIT) 4 APPLICATIONS EACH NARE SCH (12:30)
[2017-08-01] MEDS ORDERED: ceFAZolin 2 GM PREMIX 50 ML IV SCH (12:30)
[2017-08-01] MEDS ORDERED: NS 1000 ML IV SCH (12:30)
[2017-08-01] MEDS ORDERED: VANCOMYCIN 1000 MG/NS 250 ML IV SCH ×2 (12:30)
[2017-08-01] MEDS ORDERED: ASPI81CH CHEW (12:31)
[2017-08-01] MEDS ORDERED: MIDAZOLAM HCL 5 MG/5 ML VIAL ONE (12:38)
--- NOTE | 2017-08-10 17:45 | MP ---
cc: RUBINA SCHMID MD DATE OF SURGERY 08/01/17 INDICATION Cryptogenic stroke CONSENT Full informed consent was obtained prior to procedure. Risks of , bleeding, infection, foreseen and unforeseen complications were reviewed. Risks of aspiration were reviewed. The patient fully appeared to understand. PROCEDURE The patient was draped and prepped in usual manner. The patient was given local lidocaine in the region of the third to fourth intercostal space. A small incision was made and the loop recorder placed using the XMLAW loop recorder injection tool. The wound was then cleaned and closed with a Steri-Strip. The pulse generator was checked and found to have satisfactory recordings of the underlying heart rate and the patient left room in stable condition. Plan to discharge later today. CONCLUSION Successful placement of loop recorder Rubina Schmid MD, FRCP,FACC DONAVAN/ /2:19 PM /5:37 PM
== END 2017-08-01 14:45 | disposition home or self-care (01) ==
LOC: HDOC 11:31 → HDIC 11:31 → HDOC 14:45
PROVIDERS: ATTEND Internal Medicine Cardiovascular Disease
DX: I48.91 Unspecified atrial fibrillation (principal); I10 Essential (primary) hypertension; E78.5 Hyperlipidemia, unspecified; Z86.73 Personal history of transient ischemic attack (TIA), and cerebral infarction without residual deficits; Z79.899 Other long term (current) drug therapy
CPT/HCPCS: 33282; C1764; J2250; J3010